=== PATIENT | female | born 1945 ===

== ENCOUNTER 2017-04-14 14:43 | Inpatient (IN) ==
[2017-04-14 15:35] LABS: Basophils # 0.1 10*3/uL (0.0-0.2); Basophils % 0.7 % (0.0-0.8); Eosinophils # 0.1 10*3/uL (0.0-0.87); Hematocrit 37.7 VOL% (35.7-47.0); Hemoglobin 12.6 GM/DL (12.0-16.0); Immature Granulocytes % 0.3 %; Immature Granulocytes Absolute 0.02 #; Lymphocytes # 2.6 10*3/uL (1.4-4.0); Lymphocytes % 36.9 % (21.3-54.2); Mean Corpuscular HGB Conc 33.4 GM/DL (32-36); Mean Corpuscular Hemoglobin 29 PG (27-34); Mean Corpuscular Volume 86.7 FL (87-102); Monocytes # 0.6 10*3/uL (0.11-0.8); Monocytes % 8.6 % (1.7-12.7); Neutrophils # 3.7 10*3/uL (1.4-7.4); Neutrophils % 52.5 % (38.7-73.9); Platelet Count 187 T/CUMM (130-400); Red Blood Count 4.35 MC/CUMM (3.8-5.5); Red Cell Distribution Width 16.5 % (9.3-17.3)
[2017-04-14] MEDS ORDERED: MORPHINE 2 MG/1 ML SYRINGE IV STA (15:39)
[2017-04-14] MEDS ORDERED: MORPHINE 2 MG/1 ML SYRINGE ONE (15:44)
[2017-04-14 15:47] LABS: Apearance,Urine Slightly Hazy (Clear); Bacteria,Urine Many /HPF (Few); Bilirubin,Urine Negative (Negative); Blood, Urine Large mg/dL (Negative); Glucose,Urine (UA) Negative (Negative); Hyaline Casts,Urine 1 /LPF (0-3); Ketones,Urine Negative (Negative); Nitrite,Urine Negative (Negative); Protein,Urine Negative; RBC,Urine 5 /HPF (0-4); Squamous Epithelial Cell,Urine Occasional /HPF (0-10); Urine Color Straw (Yellow); Urine Specific Gravity 1.002 (1.001-1.035); Urine Urobilinogen < 2.0 EU/DL (0.2-1.0); WBC,Urine 8 /HPF (0-6)
[2017-04-14 15:56] LABS: Calcium 9.3 MG/DL (8.5-10.1)
[2017-04-14] MEDS ORDERED: MORPHINE 2 MG/1 ML SYRINGE IV PRN (17:35)
[2017-04-14] MEDS ORDERED: ONDANSETRON 4 MG/2 ML VIAL IV PRN (17:35)
[2017-04-14] MEDS ORDERED: PROMETHAZINE 25 MG/1 ML VIAL IM PRN (17:35)
[2017-04-14] MEDS ORDERED: ACETAMINOPHEN 325 MG TABLET PO PRN ×2 (17:35)
[2017-04-14] MEDS ORDERED: diphenhydrAMINE CAP 25 MG CAPSULE PO PRN (17:35)
--- NOTE | 2017-04-14 17:35 | Hospitalist History & Physical ---
Assessment and Plan - Time spent with patient Time spent with patient: Greater than 30 minutes (1) Metastatic cancer Status: Acute Current Visit: Yes (2) Back pain Status: Acute Assessment and plan: Ms. Colón is a 71-year-old -Sammarinese female with history of stroke and hypertension admitted by the hospitalist service with generalized weakness. Patient has a metastatic cancer. She has a pedunculated mass in the right labia , inguinal and pelvic nodes, a mass in the spleen, and T9 vertebrae with extension into the canal. Patient also has a urinary tract infection. Dr. Bell will see and examined patient and further recommendations to follow. UTI--patient will be started on Rocephin and monitor her symptoms. Metastatic cancer/back pain/left flank pain--most likely her pain is due to her metastatic cancer in the bones and her left upper quadrant pain could be the mass in her spleen. Will try some Percocet and morphine to keep the patient more comfortable. We will go ahead and consult hospice care to assist the family. Patient has had numerous visits to the ED in the last few weeks due to pain. Hypertension--we will restart her medicines and monitor. She is hypertensive at this time but this could be from pain. We will continue to monitor and add more to her regimen if needed. Current Visit: Yes (3) Left upper quadrant pain Status: Acute Current Visit: Yes (4) Hypertension Status: Acute Current Visit: Yes (5) UTI (urinary tract infection) Status: Acute Current Visit: Yes History of Present Illness Chief complaint: Generalized weakness History of present illness: Ms. Colón is a 71 year old -Sammarinese female with history of CVA, hypertension and metastatic cancer presenting to the ED with progressive generalized weakness. Patient had a stroke approximately 10 years ago that did affect her speech. She is difficult to understand but her family members were present to help with her history. Patient was recently diagnosed in October with a labial cancer that has metastasized to the abdominal organs and spine. They saw Dr. Dee and one of the oncologist that say that this is inoperable. They cannot remember which oncologist they saw. Patient has had progressive back pain that has required multiple visits to the ED recently for pain medications. Today patient states that she has been unable to walk for the past few days due to weakness. She is complaining of left-sided abdominal and flank pain. She denies headache, dysphasia, chest pain, shortness of breath , diarrhea, or lower extremity edema. She does have some constipation. Patient 's daughter bought her a walker and this is helped her get around a little bit better. She is afebrile but her blood pressures are up to 187/85. Her labs are relatively normal other than a moderate leukocyte UTI with blood. A CT scan of the abdomen and pelvis was done on 03/18/2017 that showed the labial soft tissue mass consistent with squamous cell carcinoma, inguinal and pelvic metastatic adenopathy, large lytic lesion of the T9 vertebral body with soft tissue mass extending into the canal with resulting stenosis consistent with metastatic cysts, 2.5 cm splenic hypodensity suspicious for metastases, questionable cholelithiasis, nodularity of the left adrenal gland. After discussion with Dr. Kitchen the ED physician and Dr. Sutton the admitting hospitalist, it was agreed patient would be admitted for further evaluation and treatment. 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 [No] tremulousness. Head: Normocephalic, atraumatic. Ears, Nose and Throat System: No evidence of Otitis or Mastoiditis. No epistaxis or discharge Eyes System: Pupils equal, round, and reactive. Extraocular muscles intact. Neck: Supple, without adenopathy, [No] jugular venous distention. No thyromegaly , neck mass, or prior surgery apparent. Respiratory System: Chest [clear] to auscultation. Cardiovascular System: Heart with [regular] rate and rhythm. [No] murmur. GI System: Abdomen [soft], mildly tender in left upper quadrant and flank. [ Normo]active bowel sounds present. Musculoskeletal System: limbs with [no] pedal edema. [Full] distal pulses. Neurological System: [No discernable] sensory deficit. [No] aphasia Psychiatric System: Conversation is rational but difficult to understand due to stroke system: Pedunculated mass on the left labia Results - Labs CBC & BMP: 04/14/17 15:09 04/14/17 15:09 Lab Results: I have reviewed the past 24 hour labs
--- NOTE | 2017-04-14 18:11 | Emergency Department Note ---
Dieudonne Reinoso Brooke, am scribing for, and in the presence of, Peter Kitchen M.D. 15:33. Imtiaz Reinoso Howard T, M.D., personally performed the services described in this documentation, ascribed by Sienna Bro in my presence, and it is both accurate and complete 810 . Arrival - Arrival Chief Complaint: Weakness Stated Complaint: weakness ED Nursing Triage Note: REPORTS WEAKNESS FOR ONE WEEK. PT HAS TERMINAL CANCER. C /O PAIN TO LEFT FLANK RADIATING TO LOWER BACK. DENIES NAUSEA. PT WAS AMBULATORY UNTIL FRIDAY Mode of Arrival: Stretcher Limitations: No Limitations Source: Patient, Family (Daughter), EMS, RN Notes Reviewed Time Seen by Provider: 04/14/17 15:07 - History of Present Illness HPI Narrative: Patient is a 71 year old female, with reproductive cancer, who was brought into the ED by EMS with c/o generalized weakness and pain that started about a week ago and has gradually worsened. Patient has a large mass to the left labial that is consistent with her cancer diagnosis. The cancer has spread to her spine. Patient says her lower abdomen and lower back hurt most of the time. She does have prescription [place] but family says she mostly only takes Tylenol and Advil. Due to the weakness, Patient did fall this morning. Family is concerned because the labial mass started bleeding. Patient is not currently taking any blood thinners. Patient denies having any nausea, vomiting, or trouble breathing but says she does have some constipation, which she says is a new problem. She is still eating and drinking without any problems. Laneiy says Patient is independent most days. Patient also has PMHx of HTN and CVA(two). Her Primary Care Provider is Dr. Lazaro. She did see Dr. Kimball about the labial mass. Patient is not currently being followed by a Oncologist and Family says "there is nothing else they can do" so Patient is only receiving palliative care. Date of Last Menstrual Period: MENOPAUSE Allergies/Adverse Reactions: Allergies Allergy/AdvReac Type Severity Reaction Status Date / Time hydrochlorothiazide Allergy Intermediate ITCHING Verified 04/06/17 18:17 Home Medications: Home Medications Medication Instructions Recorded Confirmed Type Atenolol 25 mg PO BID 03/17/17 04/14/17 History Review of System - Review of System 12 point system: reviewed and no additional remarkable complaints except as stated - Review of System Constitutional: Absent: fever Respiratory: Absent: respiratory distress Gastrointestinal: Present: abdominal pain (lower), constipation. 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) - Social History Smoking Status: Never smoker Frequency of Alcohol Use: None Type of Drug Use: None Exam Vital Signs: Vital Signs Temperature 98.4 F 04/14/17 14:43 Pulse Rate 64 04/14/17 17:48 Respiratory Rate 20 04/14/17 17:48 Blood Pressure 184/73 04/14/17 17:48 O2 Sat by Pulse Oximetry 100 04/14/17 17:48 - General General appearance: alert, in no apparent distress, other (appears comfortable) - Head Head exam: Present: atraumatic, normocephalic - Eye Eye exam: Present: normal appearance, PERRL, EOMI - ENT ENT exam: Present: normal exam - Neck Neck exam: Present: normal inspection - Chest Chest inspection: Present: normal inspection, symmetric chest wall rise - Respiratory Respiratory exam: Present: normal lung sounds bilaterally - Cardiovascular Cardiovascular exam: Present: regular rate, normal rhythm, normal heart sounds - Abdominal Exam Abdominal exam: Present: soft, normal bowel sounds. Absent: distention, tenderness - External exam: Present: other (Large left labial mass that is consistent with cancer diagnosis.) - Extremities Exam Extremities exam: Present: normal inspection, full ROM - Back Exam Back exam: Present: normal inspection - Neurological Exam Neurological exam: Present: alert, oriented X3 - Psychiatric Psychiatric exam: Present: normal affect, normal mood - Skin Skin exam: Present: warm, dry, intact, normal color Course Course Narrative: Medical decision making: Patient admitted overnight for observation hospital service for antibiotics for further evaluation fluids and probably to get some home health or hospice assistance. Results - Labs CBC & BMP: 04/14/17 15:09 04/14/17 15:09 Disposition Clinical Impression: Weakness, UTI (urinary tract infection), Metastatic cancer Case discussed with: patient Disposition: Still a Patient Condition: Stable Time of Disposition: 18:11
[2017-04-14] MEDS: ATENOLOL 25 MG TABLET PO SCH (20:48)
[2017-04-14] MEDS: DOCUSATE SODIUM 100 MG CAPSULE PO SCH (20:48)
[2017-04-14] MEDS: SODIUM CHLORIDE 0.9% 1,000 ML IV SCH (20:49)
[2017-04-14] MEDS: ENOXAPARIN 40 MG/0.4 ML SYRINGE SUBCUT SCH (20:49)
[2017-04-14] MEDS: oxyCODONE/ACETAMINOPHEN 5-325 MG TABLET PO PRN (21:51)
[2017-04-15] MEDS: oxyCODONE/ACETAMINOPHEN 5-325 MG TABLET PO PRN ×4 (03:05→20:40)
[2017-04-15] MEDS: SODIUM CHLORIDE 0.9% 1,000 ML IV SCH ×3 (04:44→20:43)
[2017-04-15] MEDS: ATENOLOL 25 MG TABLET PO SCH ×3 (07:44→20:40)
[2017-04-15] MEDS: cefTRIAXone 1,000 MG in SODIUM CHLORIDE 0.9% 100 ML IV SCH (08:30)
[2017-04-15] MEDS: DOCUSATE SODIUM 100 MG CAPSULE PO SCH ×2 (08:34→21:36)
[2017-04-15] MEDS: PANTOPRAZOLE 40 MG TABLET PO SCH (08:34)
--- NOTE | 2017-04-15 16:20 | Hospitalist Progress Note ---
Hospitalist: Subjective Interval history: 71-year-old -Chinese female with history of metastatic vaginal cancer admitted with generalized weakness and back pain. She never had any sort of surgery chemotherapy or radiation for it in the past. Exam - Constitutional Vitals: Period Temp Pulse Resp BP Sys/Ritchie Pulse Ox Last 24 Hr 96.1 F-97.9 F 59-64 20-62 181-208/73-94 93-100 Exam: General: No Acute Distress HEENT: Normocephalic, atraumatic, Extra ocular movements intact Neck: Supple, No JVD Chest: Clear to auscultation B/L CV: S1 + S2 audible without murmur, gallop or rub Abd: soft, NT, Non-distended, BS + Ext: No edema Skin: No purpura, bruising or rash Rheumatologic: No Joint deformities Neurologic: Strengtg 5/5 all extremities, no gross sensory deficits Results - Labs CBC & BMP: 04/14/17 15:09 04/14/17 15:09 - Impressions (1) Metastatic vaginal cancer Status: Acute Current Visit: Yes I discussed with licensed master social worker and she is going to talk to the family about hospice options (2) Back pain Status: Acute Current Visit: Yes Continue as needed pain meds (3) Constipation Status: Acute Current Visit: Yes (4) Hypertension Status: Acute Current Visit: Yes (5) UTI (urinary tract infection), POA Status: Acute Current Visit: Yes Continue IV Rocephin and follow-up cultures
[2017-04-15] MEDS: ENOXAPARIN 40 MG/0.4 ML SYRINGE SUBCUT SCH (20:40)
[2017-04-16] MEDS: oxyCODONE/ACETAMINOPHEN 5-325 MG TABLET PO PRN ×3 (01:57→13:05)
--- NOTE | 2017-04-16 07:45 | Oncology Consult Note ---
Assessment and Plan (1) Vaginal cancer Status: Acute Assessment and plan: I recommended to Ms. Colón this morning that she go on home hospice. She again is resistant to this. She does go home in the near future she will likely need some type of assistance whether this is home health or home hospice. If she would like further oncology follow-up she will need a referral to an oncology center in [place]. The most likely closest place to her will either be in [place] or [place]. Current Visit: Yes (2) Bone metastases Status: Acute Current Visit: Yes (3) Back pain Status: Acute Current Visit: Yes (4) UTI (urinary tract infection) Status: Acute Current Visit: Yes History of Present Illness History of present illness: Ms. 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 She has involvement of numerous pelvic lymph nodes along with pelvic and vertebral structures. A recent CT scan in early March 2017 showed an enlarging T9 lytic lesion and sclerosis of the bilateral pelvis along with known lymph nodes and primary lesion. I saw her in October in clinic and recommended that she do palliative care only and strongly consider home hospice. She has [place] Medicaid so I told her that we would not be able to provide any oncology services here in [place] if she did choose to do treatment. She was readmitted 2 days ago for pain and weakness. I had a lengthy discussion with her this morning about her diagnosis and prognosis. She still believe that she will be healed to divide measures and is not interested in an home hospice at this time. She is wanting to go home on just home health. Her prognosis is likely measured in weeks to months. Her pain will likely only worsen and she will probably continue to get weaker and weaker over time. I tried to convince her that going on home hospice would not prevent guide from healing her if this was to take place. However they would be able to provide better care for her throughout the entire cancer process. I am unsure if I was able to convince her or not. 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) - Surgical History Reproductive Surgeries: Surgical HX of;: Tubal Ligation - Family History Family History: Reports;: Family Cancer - Social History Smoking Status: Never smoker Frequency of Alcohol Use: None Type of Drug Use: None 12 point system: reviewed and no additional remarkable complaints except as stated Exam - Constitutional Vitals: Period Temp Pulse Resp BP Sys/Ritchie Pulse Ox Last 24 Hr 96.1 F-98.3 F 59-63 18-20 144-195/79-94 95-100 General appearance: normal weight, no acute distress - Head Head Exam: Present: normocephalic, atraumatic - Eye Eye Exam: Present: EOMI Pupils: Present: PERRL - ENT ENT exam: Present: normal exam, normal oropharynx - Neck Neck exam: Absent: lymphadenopathy, thyromegaly - Respiratory Respiratory exam: Present: CTAB. Absent: wheezes - Cardiovascular Cardiovascular exam: Present: RRR. Absent: irregular rhythm, JVD - GI/Abdominal GI/Abdominal exam: Present: soft. Absent: ascites, distended, firm, mass - Neurological Exam Neurological exam: Present: alert, oriented X3 - Psychiatric Psychiatric exam: Present: normal affect, normal mood - Skin Skin exam: Present: warm, dry Results - Labs CBC & BMP: 04/14/17 15:09 04/14/17 15:09 Lab Results: I have reviewed the past 24 hour labs
[2017-04-16] MEDS: PANTOPRAZOLE 40 MG TABLET PO SCH (09:28)
[2017-04-16] MEDS: DOCUSATE SODIUM 100 MG CAPSULE PO SCH (09:28)
[2017-04-16] MEDS: ATENOLOL 25 MG TABLET PO SCH (09:28)
[2017-04-16] MEDS: cefTRIAXone 1,000 MG in SODIUM CHLORIDE 0.9% 100 ML IV SCH (09:31)
--- NOTE | 2017-04-16 10:38 | Discharge Summary ---
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 The patient was admitted to the hospital for pain control and further oncology evaluation. The patient was seen in the hospital by Dr. Vargas. Please see his note for further observations. The patient's [place] Medicaid requires her to have oncology services in [place]. The patient is now discharged home with home hospice on account of Dr. Gomez recommendation that she not seek curative care at this time. He has recommended that she should seek care in [place] or [place] should she decide to have treatment. On the date of discharge, the chest is clear and abdomen soft. The patient does have some low back discomfort. Discharge [id number] time including examination, preparation of discharge, and coordination of care required 34 minutes. The patient was screened for tobacco and found to be a never smoker. I gave her 4 minutes tobacco avoidance education. Medications were reconciled at the time of admission and again at the time of discharge. - Time spent with patient Time with patient DS: Greater than 30 minutes Diagnosis - Discharge Diagnosis (1) Metastatic cancer Status: Chronic (2) Back pain Status: Chronic (3) Vaginal cancer Status: Chronic (4) Bone metastases Status: Chronic Discharge Plan - Discharge Data Disposition: Hospice - Home Condition at Discharge: Stable Discharge Diet: regular diet Activity: resume usual activities as tolerated - Discharge Medications New oxyCODONE/ACETAMINOPHEN 5-325 [Percocet 5-325] 1 tablet PO Q4H PRN #60 tablet PRN Reason: Pain Moderate (4-7) Pantoprazole Tab [Protonix Tab] 40 mg PO DAILY #60 tablet Continue Atenolol 25 mg PO BID - Follow Up or Referral - Forms/Instructions Exam - Constitutional Vitals: Period Temp Pulse Resp BP Sys/Ritchie Pulse Ox Last 24 Hr 96.1 F-98.3 F 59-64 18-20 144-183/79-85 94-100 Discharge Results Procedures and tests throughout hospitalization: Pending Orders 04/14/17 Urine Culture Routine Labs on day of discharge: Preliminary micro results at discharge 04/14/17 Unknown Urine Culture - Preliminary Urine,Voided Gram Negative Rods Gram Positive Cocci DS: Provider Date of admission: 04/14/17 17:35 Primary care physician: Iggy Branch Attending physician on admission: Jim Bell MD Consults: 04/14/17 17:38 Consult to Case Mgmt/Social Srvs [CONS] Routine Reason for Case Mgmt/Social Srvs: Hospice Referral 04/14/17 19:31 Consult to Physician [CONS] Routine Comment: Labial skin cancer Consulting Provider: Stephen Vargas Consulting Provider Notified: Yes When should Consulting Provider be notified: Now Consult to Specialist Group: Oncology When should Consulting Provider be notified: In am Person Notified: MAYTE Date Notified: 04/15/17 Time Notified: 09:06 Discharging clinician: Alberto Toledo MD
[2017-04-16] MEDS: SODIUM CHLORIDE 0.9% 1,000 ML IV SCH (11:13)
[2017-04-16 13:24] VITALS: BP 206/88
== END 2017-04-16 13:20 | disposition hospice, home (50) | DRG 948 ==
LOC: EDBD → EDUNIT# → N.ED 14:43 → N.EDINP 17:35 → SUATTDRO 17:35 → N.EDINP 18:32 → N.4E 18:38
PROVIDERS: ADMIT Internal Medicine; ATTEND Internal Medicine